=== PATIENT | male | born 1945 | race Caucasian/White ===

== ENCOUNTER 2024-04-13 12:19 | Outpatient (CLI) | payer MEDICARE, SELFPAY ==
--- NOTE | ~2024-04-13 | CT_ITS ---
Non-contrast CT scan of the Abdomen and Pelvis Clinical indication: UTI Technique: 2.5 mm axial scans were obtained through the abdomen and pelvis without intravenous or or al contrast. Dose reduction technique was used on this scan by utilizing automated exposure control a nd iterative reconstruction technique. The dose-length product (DLP) was 1280.07 mGy-cm. Findings: Images through the lung bases reveal no abnormalities. There is no evidence of renal or ureteral calculi. The kidneys and the ureters are nondilated. Left r enal cysts present. The liver, spleen, pancreas, gallbladder, and adrenals appear normal. There are atherosclerotic calci fications of the aorta. There is no evidence of bowel obstruction. Images through the pelvis are degraded by streak artifact from bilateral hip arthroplasty. Questionab le mild urinary bladder wall thickening versus underdistention. No pelvic mass seen. No ascites seen. L1 compression fracture present. 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 Impression: Questionable mild urinary bladder wall thickening versus underdistention. Correlate with urinalysis. L1 compression fracture. Reviewed, dictated and finalized at [facility]. Impression: Questionable mild urinary bladder wall thickening versus underdistention. Corre late with urinalysis. L1 compression fracture.
== END 2024-04-13 12:20 | disposition home or self-care (01) ==
LOC: ANHIMG 12:26
PROVIDERS: PCP Family Medicine; Visit Provider Urology
DX: N39.0 Urinary tract infection, site not specified (principal); S32.010A Wedge compression fracture of first lumbar vertebra, initial encounter for closed fracture; X58.XXXA Exposure to other specified factors, initial encounter
CPT/HCPCS: 74176